=== PATIENT | male | born 1965 | race African-American/Black ===

== ENCOUNTER → 2017-08-24 16:10 | Outpatient (CLI) | payer MEDICAID, OTHER, SELFPAY ==
[2017-08-24 18:42] LABS: Chlamydia Trachomatis by PCR Negative (Negative); Neisserai gonorrhoeae by PCR Negative (Negative); Probe Check PASS; Sample Adequacy Control PASS; Specimen Processing Control PASS
[2017-08-25 01:10] LABS: Rapid Plasmin Reagin (RPR) NONREACTIVE (NONREACTIVE)
[2017-08-25 10:37] LABS: HIV - WCH Non-Reactive (Nonreactive)
== END ==
PROVIDERS: Family Provider Family Medicine; PCP Family Medicine; Visit Provider Family Medicine
DX: Z20.9 Contact with and (suspected) exposure to unspecified communicable disease (principal); Z20.2 Contact with and (suspected) exposure to infections with a predominantly sexual mode of transmission
CPT/HCPCS: 36415; 86592; 86703; 87491; 87591

== ENCOUNTER → 2018-03-06 15:34 | Outpatient (CLI) | payer OTHER, MEDICAID, SELFPAY ==
--- NOTE | 2018-03-06 16:00 | MRI_ITS ---
STUDY: MRI BRAIN WITH AND WITHOUT CONTRAST REASON FOR EXAM: Male, 52 years old. Blurred vision for 3 to 4 months TECHNIQUE: Standardized multiplanar fat and water weighted pulse sequences were obtained. 9 ml of Gadavist contrast material was administered intravenously for the contrast portion of the examination. COMPARISON: None. FINDINGS: Normal size of the ventricles and extra-axial spaces for the patient's age. Normal white matter tracts of the supratentorial brain. Normal bilateral basal ganglia. Normal thalami. There is no extra-axial fluid accumulation. Normal flow voids within the major intracranial circulation suggesting patency by spin echo criteria. Normal venous enhancement. There is no enhancing intra-axial or extra-axial abnormality. Normal sella turcica, pituitary gland, infundibular stalk, optic chiasm and hypothalamus. Normal tectal plate and pineal gland. Normal midbrain, vijay and medulla. Normal cerebellum. Normal basal cisterns. Normal bilateral temporal bones. Normal bilateral internal auditory canals. There appears to be mild orbital strabismus of uncertain etiology or clinical significance. The orbits otherwise are unremarkable. Normal visualized paranasal sinuses. Normal calvarium and skull base. Normal visualized soft tissue structures. Normal visualized upper cervical spine. MRI/Brain W/WO Contrast IMPRESSION: Normal unenhanced and enhanced MRI of the brain. Mild orbital strabismus of uncertain etiology. Otherwise normal orbits Electronically Signed: Mehdi Reyes MD at 18:58 EDT , Service support ,
== END ==
PROVIDERS: Family Provider Family Medicine; PCP Family Medicine; Visit Provider Family Medicine
DX: H53.8 Other visual disturbances (principal); H46.9 Unspecified optic neuritis
CPT/HCPCS: 70553; A9585

== ENCOUNTER → 2019-07-18 16:04 | Outpatient (CLI) | payer OTHER, SELFPAY ==
[2019-07-18 17:22] LABS: Absolute Lymphocyte Count 1.66 X10^3/uL (0.83-4.51); Absolute Neutrophil Count 2.1 X10^3/uL (2.0-7.7); Basophil# 0.04 X10^3/uL; Basophil% 0.9 % (0-1); Eosinophil# 0.18 X10^3/uL; Hematocrit 39.7 % (40-54); Lymphocyte # 1.66 X10^3/ul (4.0); Lymphocyte % 36.5 % (19-41); Mean Corp Hgb Conc 32.7 g/dL (32-36); Mean Corpuscular Hgb 31.9 pg (27.0-32.0); Mean Corpuscular Volume 97.3 fL (80-94); Mean Platelet Vol. 11.9 fl (6.2-12.0); Monocyte% 13.2 % (0-10); NRBC Flagged by Analyzer 0 % (0-5); Neutrophil # 2.07 X10^3/uL (2.7-7.7); Neutrophil % 45.4 % (47-70); Platelet Count 187 K/mm3 (150-450); RBC Distribution Width CV 15.4 % (11.6-14.6); RBC Distribution Width SD 55.5 fl (35.1-43.9); Red Blood Count 4.08 M/mm3 (4.6-6.2); White Blood Count 4.6 K/mm3 (4.4-11.0)
[2019-07-18 18:34] LABS: AST(SGOT) 184 U/L (15-37); Alanine Aminotransfer ALT/SGPT 68 U/L (16-61); Albumin, Serum 3.5 g/dL (3.2-5.0); Alkaline Phosphatase 84 U/L (45-117); Anion Gap 7 (5-15); BUN 5 mg/dL (7-18); BUN/Creat Ratio 6.4 RATIO (10-20); Calcium,Total 8.8 mg/dL (8.5-10.1); Chloride 106 mmol/L (98-107); Creatinine, Serum 0.78 mg/dL (0.70-1.30); EST Glomerular Filtration Rate 110 mL/min (>60); Est Glom Filt Rate - Afr Amer 134 mL/min (>60); Globulin 3.5 g/dL (2.2-4.2); Glucose 78 mg/dL (74-106); Potassium 3.6 mmol/L (3.5-5.1); Sodium Level 140 mmol/L (136-145); Thyroid Stim Hormone (TSH) 1.04 uIU/mL (0.358-3.74)
[2019-07-19 10:27] LABS: HIV - WCH Non-Reactive (Nonreactive); Hepatitis C Antibody Non-Reactive (Nonreactive); Vitamin B12 460 pg/mL (211-911)
[2019-07-25 16:10] LABS: Vitamin B1, Thiamine 118.8 nmol/L (66.5-200.0)
== END ==
PROVIDERS: PCP Family Medicine; Visit Provider Family Medicine
DX: Z00.00 Encounter for general adult medical examination without abnormal findings (principal); E51.9 Thiamine deficiency, unspecified; F10.20 Alcohol dependence, uncomplicated; G62.9 Polyneuropathy, unspecified; R36.9 Urethral discharge, unspecified
CPT/HCPCS: 36415; 80053; 82607; 82746; 84425; 84443; 85025; 86703; 86803

== ENCOUNTER 2021-11-09 06:47 | Day surgery (SDC) | payer MEDICAID, SELFPAY ==
[2021-11-09] VITALS (7 sets, daily range): BP systolic 106–160; BP diastolic 57–98; PULSE 62–99; RESP 15–17; TEMP 36.3–36.4; O2SAT 99–100; BMI 28.5
[2021-11-09] MEDS: Lactated Ringers 1,000 ML 15 ML IV (07:17)
--- NOTE | 2021-11-09 07:47 | HP.PCM_ITS ---
HPI - General HPI Narrative THALIA PINEDA, is a 56 M who presents for screening colonoscopy. The patient has never had a colonoscopy in the past. Patient reports no abdominal pain or blood in the stool. Patient reports no family history of colon cancer. [facility] Medical History (Updated 11/08/21 @ 11:57 by Malathi Werner) Alcohol use History of pain when walking Liver enzyme elevation Marijuana use Restless legs Shortness of breath on exertion Smoker Vitamin B deficiency Wears dentures Home Medications ascorbic acid (vitamin C) [Vitamin C] 125 mg PO DAILY 09/27/21 [History Last Taken Unknown] multivitamin 1 cap PO DAILY 09/27/21 [History Last Taken Unknown] cholecalciferol (vitamin D3) [Vitamin D3] 25 mcg PO DAILY 11/08/21 [History Last Taken Unknown] gabapentin 100 mg PO BID 11/08/21 [History Last Taken Unknown] pregabalin 50 mg PO TID 11/08/21 [History Last Taken Unknown] Allergy/AdvReac Type Severity Reaction Status Date / Time No Known Allergies Allergy Verified 11/09/21 07:06 Surgical History Hx of appendectomy Social History Smoking Status: Current every day smoker tobacco type: cigars Past Medical/Surgical History Planned Operation Planned Operative Procedure/s: COLONOSCOPY Previous Hospitalizations/Surgeries HX Hospitalizations: No Any Problems With Anesthesia: No You/Your Family Experience Fever (Hyperthermia) With Anes: No Cholinesterase deficiency: No Cardiovascular Hx Hypertension: No Respiratory Hx Sleep Apnea: No Hx Respiratory Tract Infection/Cold (presently): No Do You Snore Loudly (louder than talking or can be heard): No Do You Often Feel Tired/ Fatigued/ Sleepy Dring Daytime?: No Has Anyone Observed You Stop Breathing During Sleep?: No Result (for STOP score): Negative Smoking Status: Current every day smoker Neurological Does patient have nerve stimulator: No Reproduction : No Miscellaneous Recent Exposure to Contagious Disease: No Allergies No Known Allergies Allergy (Verified 11/09/21 07:06) Discharge Is Pt Admitted From a Long-Term, or a Detention: No After D/C, Where Do you Plan to Go: Return Home Vital Signs Vital Signs Vital Signs: 11/09/21 07:07 11/09/21 07:08 Temperature 97.4 F L Temperature Source Temporal Pulse Rate 62 Respiratory Rate 15 Respiratory Pattern Normal Blood Pressure 160/85 H Blood Pressure Mean 110 Blood Pressure Source Monitor Blood Pressure Position Semi-Fowlers Blood Pressure Location Right Arm Pulse Ox 100 Oxygen Delivery Method Room Air Weight Weight: 193 lb Body Mass Index (BMI) 28.5 Physical Exam Const alert and oriented x3 Resp normal respiratory effort and normal air movement Cardio regular rate and regular rhythm GI soft to palpation, non-tender and non-distended Assessment & Plan Assessment/Plan (1) Encounter for screening for malignant neoplasm of colon: PLAN: I explained endoscopy in detail to the patient. I explained the risks including but not limited to stroke or heart attack with anesthesia, perforation of the GI tract, bleeding, infection. I explained that any of these could necessitate further emergency surgery. The patient understands and all questions were answered sufficiently. The patient wishes to proceed with procedure. Margarito Vargas MD Pager: [facility] [address] [place] [address] [address] [place] [address] Office: Surgery Risks - Colonoscopy Risks Include but are not Limited To: Risks include but are not limited to: Bleeding, perforation requiring further surgery, inability to complete colonoscopy requiring barium enema.
--- NOTE | 2021-11-09 08:23 | OP.COLON_ITS ---
Patient Name: Amador Alarcon Procedure Date: 11/09/2021 7:53 AM Date of : 1965 Age: 56 Procedure: Colonoscopy Indications: Screening for colorectal malignant neoplasm Providers: Margarito Vargas MD Referring MD: Nilson Sena Medicines: Monitored Anesthesia Care Patient Profile: This is a 56 year old male. Refer to note in patient chart for documentation of history and physical. Last Colonoscopy: none. The patient's first colonoscopy is today. Complications: No immediate complications. Procedure: Pre-Anesthesia Assessment: - Prior to the procedure, a History and Physical was performed, and patient medications and allergies were reviewed. The patient's tolerance of previous anesthesia was also reviewed. The risks and benefits of the procedure and the sedation options and risks were discussed with the patient. All questions were answered, and informed consent was obtained. Prior Anticoagulants: The patient has taken no previous anticoagulant or antiplatelet agents. After reviewing the risks and benefits, the patient was deemed in satisfactory condition to undergo the procedure. After I obtained informed consent, the scope was passed under direct vision. Throughout the procedure, the patient's blood pressure, pulse, and oxygen saturations were monitored continuously. The Colonoscope was introduced through the anus and advanced to the cecum, identified by appendiceal orifice and ileocecal valve. The colonoscopy was performed without difficulty. The patient tolerated the procedure well. The quality of the bowel preparation was good. Scope In: 8:01:48 AM Scope Withdrawal Time 0 hours 6 minutes 22 seconds Scope Out: 8:12:51 AM Total Procedure Duration Time 0 hours 11 minutes 3 seconds Findings: The entire examined colon appeared normal on direct and retroflexion views. Impression: - The entire examined colon is normal on direct and retroflexion views. - No specimens collected. Recommendation: - Discharge patient to home. - Resume previous diet. - Continue present medications. - Repeat colonoscopy in 10 years for screening purposes. Procedure Code(s): --- Professional --- 05417, Colonoscopy, flexible; diagnostic, including collection of specimen(s) by brushing or washing, when performed (separate procedure) Diagnosis Code(s): --- Professional --- Z12.11, Encounter for screening for malignant neoplasm of colon CPT copyright 2017 [employer]. All rights reserved. The codes documented in this report are preliminary and upon remote inpatient coder review may be revised to meet current compliance requirements. Margarito Vargas MD 11/09/2021 8:23:12 AM This report has been signed electronically. Number of Addenda: 0 Note Initiated On: 11/09/2021 7:53 AM
--- NOTE | 2021-11-09 08:24 | OP.CCLET_ITS ---
11/09/2021 Nilson Sena [address] [place] [address] Re : Colonoscopy procedure for Edcristian Alarcon Dear Dr. Sena This procedure was performed on Tuesday, November 09, 2021. My impressions and recommendations are as follows: Impressions : - The entire examined colon is normal on direct and retroflexion views. - No specimens collected. Recommendations : - Discharge patient to home. - Resume previous diet. - Continue present medications. - Repeat colonoscopy in 10 years for screening purposes. My findings are described in the full procedure note, which is enclosed. If I can be of further assistance, please feel free to contact me at Doctor phone number(s): , Work: . Sincerely, Margarito Vargas MD 11/09/2021 8:23:12 AM This report has been signed electronically.
== END 2021-11-09 08:54 | disposition home or self-care (01) ==
LOC: EN 06:49 → AC 06:51
PROVIDERS: PCP Family Medicine; Referring Provider Family Medicine; Visit Provider Surgery
PROC: 0DJD8ZZ Inspection of Lower Intestinal Tract, Via Natural or Artificial Opening Endoscopic (ICD-10-PCS; CPT 45378; principal; 2021-11-09 07:55)
DX: Z12.11 Encounter for screening for malignant neoplasm of colon (principal); F17.290 Nicotine dependence, other tobacco product, uncomplicated
CPT/HCPCS: 45378; J7120; J2405

== ENCOUNTER → 2023-10-13 | Outpatient (CLI) | payer MEDICAID, SELFPAY ==
[2023-10-13 17:48] LABS: Absolute Lymphocyte Count 2.05 X10^3/uL (0.83-4.51); Absolute Neutrophil Count 2.5 X10^3/uL (2.0-7.7); Basophil# 0.04 X10^3/uL; Basophil% 0.7 % (0-1); Eosinophil# 0.21 X10^3/uL; Eosinophils% 3.7 % (0-5); Hematocrit 44.2 % (40-54); Hemoglobin 14.6 g/dL (13.0-16.5); Lymphocyte # 2.05 X10^3/ul (0.83-4.51); Lymphocyte % 36.5 % (19-41); Mean Corpuscular Hgb 31.7 pg (27.0-32.0); Mean Corpuscular Volume 96.1 fL (80-94); Mean Platelet Vol. 12.9 fl (6.2-12.0); Monocyte# 0.79 X10^3/uL; Monocyte% 14.1 % (0-10); NRBC Flagged by Analyzer 0 % (0-5); Neutrophil % 44.6 % (47-70); Platelet Count 179 K/mm3 (150-450); RBC Distribution Width CV 16.4 % (11.6-14.6); RBC Distribution Width SD 57.7 fl (35.1-43.9); White Blood Count 5.6 K/mm3 (4.4-11.0)
[2023-10-13 18:01] LABS: ALB/GLOB Ratio 0.9 RATIO (0.9-2.4); AST(SGOT) 38 U/L (15-37); Alanine Aminotransfer ALT/SGPT 25 U/L (16-61); Albumin, Serum 3.5 g/dL (3.2-5.0); Alkaline Phosphatase 60 U/L (45-117); Anion Gap 9 (5-15); BUN 7 mg/dL (7-18); BUN/Creat Ratio 5.5 RATIO (10-20); Calcium,Total 9.3 mg/dL (8.5-10.1); Chloride 108 mmol/L (98-107); Cholesterol 183 mg/dL (200); Creatinine, Serum 1.28 mg/dL (0.70-1.30); EST Glomerular Filtration Rate 62 mL/min (>60); Est Glom Filt Rate - Afr Amer 75 mL/min (>60); Globulin 3.9 g/dL (2.2-4.2); Glucose 101 mg/dL (74-106); High Density Lipoprotein 66 mg/dL; PSA,Total - Annual Screen 0.84 ng/mL (0.00-4.00); Potassium 3.8 mmol/L (3.5-5.1); Protein, Total 7.4 g/dL (6.4-8.2); Sodium Level 139 mmol/L (136-145); Triglycerides 235 mg/dL; Very Low Density Lipoprotein 47 mg/dL (5-40)
[2023-10-18 17:07] LABS: Vitamin B1, Thiamine 87.5 nmol/L (66.5-200.0)
== END | disposition home or self-care (01) ==
LOC: BFHLAB 14:21
PROVIDERS: PCP Family Medicine; Visit Provider Family Medicine
DX: Z00.00 Encounter for general adult medical examination without abnormal findings (principal); Z12.5 Encounter for screening for malignant neoplasm of prostate; E51.9 Thiamine deficiency, unspecified
CPT/HCPCS: 36415; 80053; 80061; 84153; 84425; 85025; G0103

== ENCOUNTER 2024-11-14 15:15 | Outpatient (RCR) | payer MEDICARE, SELFPAY ==
[2024-10-21 13:18] VITALS: BP 166/88; PULSE 110; RESP 18; TEMP 36.4; BMI 32.5
--- NOTE | 2024-10-21 14:41 | WC ---
PHOTO 10/21/24 RIGHT ANKLE
--- NOTE | 2024-10-22 06:29 | HP.PCM_ITS ---
History of Present Illness Date of Service: 10/21/24 Chief Complaint: Right lateral ankle wound after foot and ankle surgery History of Wound: Amador Alarcon is a delightful 59-year-old male with past medical history of right ankle fracture in June 2024 (4 months ago) who presents with a nonhealing wound on the lateral aspect of the incision from the foot and ankle surgeon. Patient reports that he had a mechanical fall in June which was treated with open reduction internal fixation at [facility] by foot and ankle surgeon Dr. Dell Mccann, who referred the patient to the wound care center for the nonhealing wound. Patient is reportedly full weightbearing, but is using a walker for assistance. He continues to smoke (discussed smoking cessation at our visit today). He denies any fevers or chills. Patient does not have a personal or family history of bleeding or clotting problems. He reports that he is otherwise healthy. [facility] Medical History Shortness of breath on exertion History of pain when walking Wears dentures Alcohol use Marijuana use Vitamin B deficiency Liver enzyme elevation Restless legs Smoker Home Medications ?Medication ?Instructions ?Recorded ?Last Taken ?Type ascorbic acid (vitamin C) 125 mg 125 mg PO DAILY 09/27 Unknown History chewable tablet (Vitamin C) multivitamin 1 cap PO DAILY 09/27/21 Unkn own History cholecalciferol (vitamin D3) 25 25 mcg PO DAILY Unknown History mcg (1,000 unit) chewable tablet (Vitamin D3) gabapentin 100 mg capsule 100 mg PO BID 11/08/21 Unkno wn History pregabalin 50 mg capsule 50 mg PO TID 11/08/21 Unknow n History tadalafil 20 mg tablet mg 10/21/24 Unknown History Allergy/AdvReac Type Severity Reaction Status Date / Time No Known Allergies Allergy Verified 10/21/24 13:34 Surgical History Hx of appendectomy Social History Smoking Status: Current every day smoker tobacco type: cigars Vital Signs Vital Signs Vital Signs: 10/21/24 13:18 Temperature 97.5 F L Temperature Source Temporal Pulse Rate 110 H Respiratory Rate 18 Blood Pressure 166/88 H Blood Pressure Mean 114 Blood Pressure Source Monitor Weight Weight: 240 lb 1.75 oz Body Mass Index (BMI) 32.5 Physical Exam Narrative Right lower extremity: There is a 6 x 1 cm wound on the right lateral ankle that is 0.8 cm deep with an exposed screw at the base of the wound. There is no surrounding induration or any fluid collections. No draining sinuses. Vascular: 2+ dorsalis pedis and posterior tibial pulses Sensory: He has full sensation to light touch on the foot and ankle. Motor: 5+ plantarflexion and dorsiflexion. Debridement Note Debridement Note Wound debrided: Right lateral ankle wound Laterality: Right Wound Grade/Stage: 4 Type of Debridement: Excisional debridement Anesthesia Used: 4% Lidocaine Solution Depth: in the subcutaneous layer Percentage of wound debrided: 100 Instrument Used: 5mm curette and 7mm curette Tissue Removed: Fibrinous exudate and necrotic fat over the screw Severity: Fat Layer Exposed Amount of bleeding with debridement: Mild Bleeding Controlled with: Compression and gauze Patient tolerated procedure: Patient tolerated procedure well Post-Debridement Measurements and Additional Note: Post-Debridement Measurements/Treatment - Nurse 1 - General Ulcer Assessment Start: 10/21/24 13:18 Freq: Status: Active Protocol: GOGO.CrunchedEXWilfrido Activity Type Activity Date Activity User E-sign Co-sign Detail Recorded Client Recorded Date Recorded By Document 10/21/24 13:18 DL [id number] 10/21/24 13:30 DL 10/21/24 13:18 - Today's Visit Information Type of service Initial Visit Patient Identification Verified (Name & Yes ) Patient Requires Transmission-Based No Precautions Height and Weight Height 6 ft Weight 240 lb 1.75 oz Weight in Pounds 240.1 lbs Body Mass Index (BMI) 32.5 BMI Classification Obese Vital Signs Temperature (97.8 F-99.1 F) 97.5 F L Temperature Source Temporal Pulse Rate (60-100) 110 H Pulse Location Monitor Respiratory Rate (12-18) 18 Respiratory rate source Observation Blood Pressure (90/60-120/80) 166/88 H Blood Pressure Mean 114 Source Monitor Pain Scale: 0-10 Numeric Is Patient Pain Free? Yes Lower Extremity Assessment/ Foot Assessment/ Toe Nail Assessment Left -Posterior Tibial Palpable Yes -Posterior Tibial Doppler Multiphasic -Dorsalis Pedis Palpable Yes -Dorsalis Pedis Doppler Multiphasic -Extremity Color Hemosiderin -Hair Growth on Legs No -Hair Growth on Toes No -Temperature of Extremity Warm -Capillary Refill Less than 3 Seconds -Dependent Rubor No -Blanched when Elevated No -Lipodermatosclerosis No -Other Deformity No -Prior Foot Ulcer No -Charcot Joint No -Prior Amputation No -Thick Yes -Discolored Yes -Deformed Yes -Improper Length & Hygeine Yes Right -Posterior Tibial Palpable Yes -Posterior Tibial Doppler Multiphasic -Dorsalis Pedis Palpable Yes -Dorsalis Pedis Doppler Multiphasic -Extremity Color Hemosiderin -Hair Growth on Legs No -Hair Growth on Toes No -Temperature of Extremity Warm -Capillary Refill Less than 3 Seconds -Dependent Rubor No -Blanched when Elevated No -Lipodermatosclerosis No -Other Deformity No -Prior Foot Ulcer No -Charcot Joint No -Prior Amputation No -Thick Yes -Discolored Yes -Deformed Yes -Improper Length & Hygeine Yes Communication Assessment Preferred language Indonesian Able to Read Yes Able to Write Yes Communication Tools None Visual Assistive Devices None Teaching Assessment Preferences Verbal,Written, Demonstration Functional Assessment Recent Decline in Ability to Perform Ambulation, Transferring Teaching: Wound Center *Welcome to the Wound Center -Person Taught Patient WC - Nurse 1 - General Ulcer Measurement Start: 10/21/24 13:18 Freq: Status: Active Protocol: Activity Type Activity Date Activity User E-sign Co-sign Detail Recorded Client Recorded Date Recorded By Document 10/21/24 13:18 DL [id number] 10/21/24 13:30 DL 10/21/24 13:18 Wound Center Nurse 1 #1 RLat Ankle -Current Size (cm) - Length 6 -Current Size (cm) - Width 0.5 -Current Size (cm) - Depth 0.6 -Total Square Cm 3.0 -Photo Taken Yes -Classification - Thickness Full Thickness without Exposed Support Structure -Exudate Amt Medium -Exudate Type Serosanguineous -Wound Margin Distinct, Outline Attached -Granulation Amt None Present (0 %) -Necrosis Amt Large (67-100%) -Necrotic Tissue Type Adherent Slough -Structure Exposed N/A -Texture (Nubia-wound Skin Appearance) Localized Edema ,Scarring -Moisture (Nubia-wound Skin Appearance) No Abnormality -Color (Nubia-wound Skin Appearance) Hemosiderin Staining -Temperature (Nubia-wound Skin No Abnormality Appearance) (Pt Warm) -Tenderness on Palpation (Nubia-wound No Skin Appearance) -Ulcer Cleansing Soap and Water -Foul Odor after Cleansing No -Anesthetic Used 5% Lidocaine Gel Right Calf (cm) 38 Right Ankle (cm) 25.5 WC - Nurse 2 - General Ulcer CM Notes Start: 10/21/24 13:18 Freq: Status: Active Protocol: Activity Type Activity Date Activity User E-sign Co-sign Detail Recorded Client Recorded Date Recorded By Document 10/21/24 13:52 [id number] [id number] 10/21/24 14:06 10/21/24 13:52 Wound Center Nurse 2 #1 RLat Ankle -Time 13:55 -Correct Patient Yes -Correct Side, Site, Position Yes -Correct Procedure Yes -Procedure Performed Yes -Type of Procedure Debridement -Clinical Debridement Subcutaneous -Tissue Removed Subcutaneous -Post Debridement (cm) - Length 6.2 -Post Debridement (cm) - Width 1.0 -Post Debridement (cm) - Depth 0.8 -Total Square (Post) (cm) 6.20 -Area of Debridement (cm) - Length 6.2 -Area of Debridement (cm) - Width 1.0 -Total Square (Area) (cm) 6.20 -Tunneling No -Undermining/Tunneling No -Circular Undermining No -Wound/Ulcer Outcome Not Healed -Ulcer Cleansing Rinsed/ Irrigated with Saline -Foul Odor after Cleansing No -Bioengineered Tissue No -Bleeding Controlled with Pressure -Treatment Response Procedure Tolerated Well -Offloading No -Debridement - Subq, 1st 20sq cm Yes Pain Scale: 0-10 Numeric Is Patient Pain Free? Yes - Nurse 3 - General Ulcer D/C NN Start: 10/21/24 13:18 Freq: Status: Active Protocol: Activity Type Activity Date Activity User E-sign Co-sign Detail Recorded Client Recorded Date Recorded By Document 10/21/24 14:20 KW [id number] 10/21/24 14:22 10/21/24 14:20 Wound Care Center Nurse 3 #1 RLat Ankle -Ulcer Cleansing Rinsed/ Irrigated with Saline -Other Dressing dakins -Primary Dressing Covered/Secured with Dry Gauze,Dry Gauze & Roll Gauze,Secured with Tape RLE -Tubular Bandage Single Layer -Size of Tubigrip Used Size F -Size F ($) 1 Pain Scale: 0-10 Numeric Is Patient Pain Free? Yes Charges/Coding Visit Charges Office Visits / Consults: [id number] OV L4 New 45min (Significant time obtaining history and direct patient care (45 minutes) ) Procedures Integumentary [id number]: [id number] Lisa subq tissue 20 sq cm/< Assessment/Plan Assessment/Plan (1) Delayed surgical wound healing: CODE(S): T81.89XA - Other complications of procedures, not elsewhere classified, initial encounter PLAN: Discussed smoking cessation. Ordered ABIs to check for vascular insufficiency. Plan for Dakin's wet-to-dry dressings twice daily for now and ordering a home wound VAC. I will try to get the imaging from [facility] (recently got x-rays), otherwise we will repeat x-rays. Ordering nutrition labs as well including A1c. PLAN: Plan I am concerned that the wound has a colonized screw at the base that will inhibit granulation and closure of the wound. I believe that the screw likely needs to be removed, and as long as the patient is optimized medically (we will check for metabolic problems and vascular problems), once the foreign body is removed from the wound bed then Mr. Alarcon should be able to granulate the wound bed with the wound VAC for eventual healing. I will talk to Dr. Mccann. Plan for follow-up in 1 week at the wound care center
--- NOTE | 2024-10-29 13:30 | WC ---
Called ATB Doxy 100mg PO BID x7 days no refills per Dr. Laguna to [facility] in [facility] as preferred pharm for pt.
--- NOTE | 2024-11-04 08:19 | PN.PCM_ITS ---
History of Present Illness Date of Service: 11/04/24 Chief Complaint: Right lateral ankle wound after foot and ankle surgery History of Wound: Amador Alarcon is a delightful 59-year-old male with past medical history of right ankle fracture in June 2024 (4 months ago) who presents with a nonhealing wound on the lateral aspect of the incision from the foot and ankle surgeon. Patient reports that he had a mechanical fall in June which was treated with open reduction internal fixation at [facility] by foot and ankle surgeon Dr. Dell Mccann, who referred the patient to the wound care center for the nonhealing wound. Patient is reportedly full weightbearing, but is using a walker for assistance. He continues to smoke (discussed smoking cessation at our visit today). He denies any fevers or chills. Patient does not have a personal or family history of bleeding or clotting problems. He reports that he is otherwise healthy. Subjective Subjective CURRENT ENCOUNTER, 04 Nov 2024: Doing well overall today 1 week status post removal of fibular hardware with Dr. Mccann (removed 28 Oct 2024). Dr. Mccann also placed a skin substitute over the exposed area of fibula at the base of the wound. Patient has been taking doxycycline 100 mg p.o. twice daily since the week before last for positive cultures of the surface of the hardware taken in clinic. No cultures were taken at the time of hardware explantation (I spoke with Dr. Mccann after the surgery). Mr. Alarcon is currently doing Dakin's wet-to-dry twice daily for wound care over the wound over the skin substitute. He has an infectious disease referral to see Dr. Nebwy. Objective Data Objective Data Vital Signs: Vital Signs Temp Pulse Resp BP 97.5 F L 110 H 18 166/88 H 10/21/24 13:18 10/21/24 13:18 10/21/24 13:18 10/21/24 13:18 Weight: 240 lb 1.75 oz Body Mass Index (BMI) 32.5 Lab / Micro Data Micro: Microbiology 10/21/24 14:02 Ulcer, Decubitus - Ankle Gram Stain - Final 10/21/24 14:02 Ulcer, Decubitus - Ankle Wound Culture - Final Enterobacter cloacae complex Staphylococcus aureus 10/21/24 14:02 Ulcer, Decubitus - Ankle Anaerobic Culture - Final Anaerobic cocci Schaalia canis Charges/Coding Procedures Integumentary 111xxx-113xx: 86265 Lisa bone 20 sq cm/< Physical Exam Narrative Right lower extremity: There is a 9 x 1 cm cm wound on the right lateral ankle that is 1 cm with exposed dermal substitute over bone at the base of the wound. There is no surrounding induration or any fluid collections. No draining sinuses. Vascular: 2+ dorsalis pedis and posterior tibial pulses Sensory: He has full sensation to light touch on the foot and ankle. Motor: 5+ plantarflexion and dorsiflexion. Debridement Note Debridement Note Wound debrided: Right lateral leg and ankle wound Laterality: Right Wound Grade/Stage: Stage IV, exposed fibula at the base Type of Debridement: Excisional debridement Anesthesia Used: 4% Lidocaine Solution and - (10 cc of 1% lidocaine with 1- 200,000 epinephrine) Depth: to bone Percentage of wound debrided: 100 Instrument Used: 7mm curette, Forceps and - (15 blade scalpel and scissors for sharp excision) Tissue Removed: Sutures, necrotic fat, dermal substitute, bone fragments at the base Amount of bleeding with debridement: Moderate Bleeding Controlled with: Compression and gauze and - (The epinephrine from the local anesthesia as noted above) Patient tolerated procedure: Patient tolerated procedure well Debridement Free Text: The area was prepped with alcohol and sterile surgical instruments were used. Sutures were removed so as to enable removal of the dermal substitute (cadaver allograft) placed over the bone. The dermal substitute was remove from the surface of the wound/bone with the use of forceps and a scissors (it had been sutured into place). There was exposed bone at the base of the wound with bony fragments from removal of the plate which were washed out and debrided with a curette (removal of bone fragments from the base of the wound). The surrounding tissue had some tissue necrosis including necrotic fibrinous exudate and necrotic fat and fascia which was excised sharply with scissors and a 15 blade scalpel. The wound was irrigated with copious amounts normal saline. At this point the wound was ready for wound VAC placement, and the wound VAC was applied. Operative Diagnosis: Severe wound with bone exposed at the base after hardware removal Post-Debridement Measurements and Additional Note: Post-Debridement Measurements/Treatment WC - Nurse 1 - General Ulcer Assessment Start: 10/21/24 13:18 Freq: Status: Active Protocol: WC.LOWEXT Activity Type Activity Date Activity User E-sign Co-sign Detail Recorded Client Recorded Date Recorded By Document 10/21/24 13:18 DL [id number] 10/21/24 13:30 DL 10/21/24 13:18 WC - Today's Visit Information Type of service Initial Visit Patient Identification Verified (Name & Yes ) Patient Requires Transmission-Based No Precautions Height and Weight Height 6 ft Weight 240 lb 1.75 oz Weight in Pounds 240.1 lbs Body Mass Index (BMI) 32.5 BMI Classification Obese Vital Signs Temperature (97.8 F-99.1 F) 97.5 F L Temperature Source Temporal Pulse Rate (60-100) 110 H Pulse Location Monitor Respiratory Rate (12-18) 18 Respiratory rate source Observation Blood Pressure (90/60-120/80) 166/88 H Blood Pressure Mean (mm Hg) 114 Source Monitor Pain Scale: 0-10 Numeric Is Patient Pain Free? Yes Lower Extremity Assessment/ Foot Assessment/ Toe Nail Assessment Left -Posterior Tibial Palpable Yes -Posterior Tibial Doppler Multiphasic -Dorsalis Pedis Palpable Yes -Dorsalis Pedis Doppler Multiphasic -Extremity Color Hemosiderin -Hair Growth on Legs No -Hair Growth on Toes No -Temperature of Extremity Warm -Capillary Refill Less than 3 Seconds -Dependent Rubor No -Blanched when Elevated No -Lipodermatosclerosis No -Other Deformity No -Prior Foot Ulcer No -Charcot Joint No -Prior Amputation No -Thick Yes -Discolored Yes -Deformed Yes -Improper Length & Hygeine Yes Right -Posterior Tibial Palpable Yes -Posterior Tibial Doppler Multiphasic -Dorsalis Pedis Palpable Yes -Dorsalis Pedis Doppler Multiphasic -Extremity Color Hemosiderin -Hair Growth on Legs No -Hair Growth on Toes No -Temperature of Extremity Warm -Capillary Refill Less than 3 Seconds -Dependent Rubor No -Blanched when Elevated No -Lipodermatosclerosis No -Other Deformity No -Prior Foot Ulcer No -Charcot Joint No -Prior Amputation No -Thick Yes -Discolored Yes -Deformed Yes -Improper Length & Hygeine Yes Communication Assessment Preferred language Azeri Able to Read Yes Able to Write Yes Communication Tools None Visual Assistive Devices None Teaching Assessment Preferences Verbal,Written, Demonstration Functional Assessment Recent Decline in Ability to Perform Ambulation, Transferring Teaching: Wound Center *Welcome to the Wound Center -Person Taught Patient WC - Nurse 1 - General Ulcer Measurement Start: 10/21/24 13:18 Freq: Status: Active Protocol: Activity Type Activity Date Activity User E-sign Co-sign Detail Recorded Client Recorded Date Recorded By Document 10/21/24 13:18 NICOLÁS [id number] 10/21/24 13:30 DL 10/21/24 13:18 Wound Center Nurse 1 #1 RLat Ankle -Current Size (cm) - Length 6 -Current Size (cm) - Width 0.5 -Current Size (cm) - Depth 0.6 -Total Square Cm 3.0 -Photo Taken Yes -Classification - Thickness Full Thickness without Exposed Support Structure -Exudate Amt Medium -Exudate Type Serosanguineous -Wound Margin Distinct, Outline Attached -Granulation Amt None Present (0 %) -Necrosis Amt Large (67-100%) -Necrotic Tissue Type Adherent Slough -Structure Exposed N/A -Texture (Nubia-wound Skin Appearance) Localized Edema ,Scarring -Moisture (Nubia-wound Skin Appearance) No Abnormality -Color (Nubia-wound Skin Appearance) Hemosiderin Staining -Temperature (Nubia-wound Skin No Abnormality Appearance) (Pt Warm) -Tenderness on Palpation (Nbuia-wound No Skin Appearance) -Ulcer Cleansing Soap and Water -Foul Odor after Cleansing No -Anesthetic Used 5% Lidocaine Gel Right Calf (cm) 38 Right Ankle (cm) 25.5 - Nurse 2 - General Ulcer CM Notes Start: 10/21/24 13:18 Freq: Status: Active Protocol: Activity Type Activity Date Activity User E-sign Co-sign Detail Recorded Client Recorded Date Recorded By Document 10/21/24 13:52 RENE [id number] 10/21/24 14:06 RENE 10/21/24 13:52 Wound Center Nurse 2 #1 RLat Ankle -Time 13:55 -Correct Patient Yes -Correct Side, Site, Position Yes -Correct Procedure Yes -Procedure Performed Yes -Type of Procedure Debridement -Clinical Debridement Subcutaneous -Tissue Removed Subcutaneous -Post Debridement (cm) - Length 6.2 -Post Debridement (cm) - Width 1.0 -Post Debridement (cm) - Depth 0.8 -Total Square (Post) (cm) 6.20 -Area of Debridement (cm) - Length 6.2 -Area of Debridement (cm) - Width 1.0 -Total Square (Area) (cm) 6.20 -Tunneling No -Undermining/Tunneling No -Circular Undermining No -Wound/Ulcer Outcome Not Healed -Ulcer Cleansing Rinsed/ Irrigated with Saline -Foul Odor after Cleansing No -Bioengineered Tissue No -Bleeding Controlled with Pressure -Treatment Response Procedure Tolerated Well -Offloading No -Debridement - Subq, 1st 20sq cm Yes Pain Scale: 0-10 Numeric Is Patient Pain Free? Yes WC - Nurse 3 - General Ulcer D/C NN Start: 10/21/24 13:18 Freq: Status: Active Protocol: Activity Type Activity Date Activity User E-sign Co-sign Detail Recorded Client Recorded Date Recorded By Document 10/21/24 14:20 KW [id number] 10/21/24 14:22 KW 10/21/24 14:20 Wound Care Center Nurse 3 #1 RLat Ankle -Ulcer Cleansing Rinsed/ Irrigated with Saline -Other Dressing dakins -Primary Dressing Covered/Secured with Dry Gauze,Dry Gauze & Roll Gauze,Secured with Tape RLE -Tubular Bandage Single Layer -Size of Tubigrip Used Size F -Size F ($) 1 Pain Scale: 0-10 Numeric Is Patient Pain Free? Yes Assessment/Plan Assessment/Plan (1) Delayed surgical wound healing: CODE(S): T81.89XA - Other complications of procedures, not elsewhere classified, initial encounter PLAN: Discussed smoking cessation. Ordered ABIs to check for vascular insufficiency (scheduled for later this month) Also ordered labs and discussed importance of obtaining the labs (nutrition labs including CMP, CBC, prealbumin and A1c). PLAN: Plan 1 week s/p removal of hardware with Dr. Mccann with placement of dermal substitute. Since we have wound VAC today dermal substitute was removed (see debridement note above) and the wound VAC was applied. Continue 3 times per week VAC changes and granulation should form and the concave wound base relatively quickly. Plan for follow-up in 1 week at the wound care center. Patient happy with the plan.
[2024-11-04 09:00] VITALS: BP 171/92; PULSE 92; RESP 16; TEMP 37; BMI 32.5
--- NOTE | 2024-11-05 12:55 | WC ---
R LAT ANKLE POST OP 11/04/24
--- NOTE | 2024-11-14 15:18 | PCM.WC.PN ---
History of Present Illness Date of Service: 11/14/24 Chief Complaint: Right lateral ankle wound after foot and ankle surgery History of Wound: Amador Alarcon is a delightful 59-year-old male with past medical history of right ankle fracture in June 2024 (4 months ago) who presents with a nonhealing wound on the lateral aspect of the incision from the foot and ankle surgeon. Patient reports that he had a mechanical fall in June which was treated with open reduction internal fixation at [facility] by foot and ankle surgeon Dr. Dell Mccann, who referred the patient to the wound care center for the nonhealing wound. Patient is reportedly full weightbearing, but is using a walker for assistance. He continues to smoke (discussed smoking cessation at our visit today). He denies any fevers or chills. Patient does not have a personal or family history of bleeding or clotting problems. He reports that he is otherwise healthy. Subjective Subjective 04 Nov 2024: Doing well overall today 1 week status post removal of fibular hardware with Dr. Mccann (removed 28 Oct 2024). Dr. Mccann also placed a skin substitute over the exposed area of fibula at the base of the wound. Patient has been taking doxycycline 100 mg p.o. twice daily since the week before last for positive cultures of the surface of the hardware taken in clinic. No cultures were taken at the time of hardware explantation (I spoke with Dr. Mccann after the surgery). Mr. Alarcon is currently doing Dakin's wet-to-dry twice daily for wound care over the wound over the skin substitute. He has an infectious disease referral to see Dr. Newby. CURRENT ENCOUNTER, 14 Nov 2024: Feeling well overall. Tolerating dressing changes with wound VAC. Finish course of antibiotics. No fevers chills or drainage. Objective Data Objective Data Vital Signs: Vital Signs Temp Pulse Resp BP 98.6 F 92 16 171/92 H 11/04/24 09:00 11/04/24 09:00 11/04/24 09:00 11/04/24 09:00 Weight: 240 lb 1.75 oz Body Mass Index (BMI) 32.5 Lab / Micro Data Micro: Microbiology 10/21/24 14:02 Ulcer, Decubitus - Ankle Gram Stain - Final 10/21/24 14:02 Ulcer, Decubitus - Ankle Wound Culture - Final Enterobacter cloacae complex Staphylococcus aureus 10/21/24 14:02 Ulcer, Decubitus - Ankle Anaerobic Culture - Final Anaerobic cocci Elisabeth hanson Charges/Coding Procedures Integumentary 111xxx-113xx: [id number] Lisa musc/fascia 20 sq cm/< Physical Exam Narrative Right lower extremity: There is a 9 x 2 cm wound on the right lateral ankle that is 1 cm deep with exposed fascia at the base of the wound. No exposed bone today. There is no surrounding induration or any fluid collections. No draining sinuses. Vascular: 2+ dorsalis pedis and posterior tibial pulses Sensory: He has full sensation to light touch on the foot and ankle. Motor: 5+ plantarflexion and dorsiflexion. Debridement Note Debridement Note Wound debrided: Right lateral ankle wound Laterality: Right Wound Grade/Stage: Stage III Type of Debridement: Excisional debridement Anesthesia Used: 4% Lidocaine Solution and - (5 cc of 1% lidocaine with 1-200,000 epinephrine) Depth: to muscle Percentage of wound debrided: 100 Instrument Used: 7mm curette Tissue Removed: Necrotic fibrinous exudate and fascial debris, muscle/fascia level Severity: Necrosis of Muscle Amount of bleeding with debridement: Moderate Bleeding Controlled with: Compression and gauze Patient tolerated procedure: Patient tolerated procedure well Post-Debridement Measurements and Additional Note: Post-Debridement Measurements/Treatment WC - Nurse 1 - General Ulcer Assessment Start: 10/21/24 13:18 Freq: Status: Active Protocol: WC.LOWEXT Activity Type Activity Date Activity User E-sign Co-sign Detail Recorded Client Recorded Date Recorded By Document 10/21/24 13:18 DL [id number] 10/21/24 13:30 DL Document 11/04/24 09:00 [id number] 11/04/24 09:07 10/21/24 11/04/24 13:18 09:00 - Today's Visit Information Type of service Initial Visit Follow-up Visit (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/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 ) Arrival Mode Ambulatory, Walker Patient Identification Verified (Name & Yes Yes ) Patient Requires Transmission-Based No No Precautions Height and Weight Height 6 ft Weight 240 lb 1.75 oz Weight in Pounds 240.1 lbs Body Mass Index (BMI) 32.5 32.5 BMI Classification Obese Obese Vital Signs Temperature (97.8 F-99.1 F) 97.5 F L 98.6 F Temperature Source Temporal Temporal Pulse Rate (60-100) 110 H 92 Pulse Location Monitor Monitor Respiratory Rate (12-18) 18 16 Respiratory rate source Observation Observation Blood Pressure (90/60-120/80) 166/88 H 171/92 H Blood Pressure Mean (mm Hg) 114 118 Source Monitor Monitor Position Semi-Fowlers Blood Pressure Location Right Forearm History Since Last Visit- (Skip if this is Patient's initial visit) Have you changed medications since your No last visit? Any new allergies or adverse reactions No Had a fall/change in ADL's that may No increase risk of falls Signs or symptoms of abuse and/or No neglect since last visit Have you been in the hospital since your No last visit? Has dressing in place as prescribed Yes Has compression in place as prescribed Yes Has offloadiing in place as prescribed Yes Experienced any changes in pain level or No management Left Footwear Regular Shoe Right Footwear Surgical Shoe with pressure relief insole Pain Scale: 0-10 Numeric Is Patient Pain Free? Yes Yes Lower Extremity Assessment/ Foot Assessment/ Toe Nail Assessment Left -Posterior Tibial Palpable Yes -Posterior Tibial Doppler Multiphasic -Dorsalis Pedis Palpable Yes -Dorsalis Pedis Doppler Multiphasic -Extremity Color Hemosiderin -Hair Growth on Legs No -Hair Growth on Toes No -Temperature of Extremity Warm -Capillary Refill Less than 3 Seconds -Dependent Rubor No -Blanched when Elevated No -Lipodermatosclerosis No -Other Deformity No -Prior Foot Ulcer No -Charcot Joint No -Prior Amputation No -Thick Yes -Discolored Yes -Deformed Yes -Improper Length & Hygeine Yes Right -Posterior Tibial Palpable Yes -Posterior Tibial Doppler Multiphasic -Dorsalis Pedis Palpable Yes -Dorsalis Pedis Doppler Multiphasic -Extremity Color Hemosiderin -Hair Growth on Legs No -Hair Growth on Toes No -Temperature of Extremity Warm -Capillary Refill Less than 3 Seconds -Dependent Rubor No -Blanched when Elevated No -Lipodermatosclerosis No -Other Deformity No -Prior Foot Ulcer No -Charcot Joint No -Prior Amputation No -Thick Yes -Discolored Yes -Deformed Yes -Improper Length & Hygeine Yes Communication Assessment Preferred language Spanish Able to Read Yes Able to Write Yes Communication Tools None Visual Assistive Devices None Teaching Assessment Preferences Verbal,Written, Demonstration Functional Assessment Recent Decline in Ability to Perform Ambulation, Transferring Teaching: Wound Center *Welcome to the Wound Center -Person Taught Patient WC - Nurse 1 - General Ulcer Measurement Start: 10/21/24 13:18 Freq: Status: Active Protocol: Activity Type Activity Date Activity User E-sign Co-sign Detail Recorded Client Recorded Date Recorded By Document 10/21/24 13:18 DL [id number] 10/21/24 13:30 DL Document 11/04/24 09:00 JF [id number] 11/04/24 09:07 JF 10/21/24 11/04/24 13:18 09:00 Wound Center Nurse 1 #1 RLat Ankle -Combined with other wound No -Current Size (cm) - Length 6 9.4 -Current Size (cm) - Width 0.5 1.2 -Current Size (cm) - Depth 0.6 1 -Total Square Cm 3.0 11.28 -Photo Taken Yes Yes -Epithelialization Small 1-33% -Tunneling No -Undermining/Tunneling No -Circular Undermining No -Classification - Thickness Full Thickness without Exposed Support Structure -Exudate Amt Medium Medium -Exudate Type Serosanguineous Serosanguineous -Wound Margin Distinct, Flat & Intact Outline Attached -Granulation Amt None Present (0 Medium (34-66%) %) -Granulation Quality Red -Slough/Fibrin Yes -Necrosis Amt Large (67-100%) Medium (34-66%) -Necrotic Tissue Type Adherent Slough Adherent Slough -Structure Exposed N/A N/A -Texture (Nubia-wound Skin Appearance) Localized Edema Assessed, ,Scarring Localized Edema -Moisture (Nubia-wound Skin Appearance) No Abnormality Assessed,Dry/ Scaly -Color (Nubia-wound Skin Appearance) Hemosiderin Assessed Staining -Temperature (Nubia-wound Skin No Abnormality No Abnormality Appearance) (Pt Warm) (Pt Warm) -Tenderness on Palpation (Nubia-wound No No Skin Appearance) -Ulcer Cleansing Soap and Water Soap and Water -Foul Odor after Cleansing No No -Anesthetic Used 5% Lidocaine 4% Lidocaine Gel Solution Lower Limb Edema Present NA Right Calf (cm) 38 Right Ankle (cm) 25.5 WC - Nurse 2 - General Ulcer CM Notes Start: 10/21/24 13:18 Freq: Status: Active Protocol: Activity Type Activity Date Activity User E-sign Co-sign Detail Recorded Client Recorded Date Recorded By Document 10/21/24 13:52 JF [id number] 10/21/24 14:06 JF Document 11/04/24 09:48 BMF [id number] 11/04/24 09:59 BMF 10/21/24 11/04/24 13:52 09:48 Wound Center Nurse 2 #1 RLat Ankle -Time 13:55 09:52 -Correct Patient Yes Yes -Correct Side, Site, Position Yes Yes -Correct Procedure Yes Yes -Procedure Performed Yes Yes -Type of Procedure Debridement Debridement -Clinical Debridement Subcutaneous Bone -Tissue Removed Subcutaneous -Post Debridement (cm) - Length 6.2 9 -Post Debridement (cm) - Width 1.0 1 -Post Debridement (cm) - Depth 0.8 1 -Total Square (Post) (cm) 6.20 9 -Area of Debridement (cm) - Length 6.2 9 -Area of Debridement (cm) - Width 1.0 1 -Total Square (Area) (cm) 6.20 9 -Tunneling No No -Undermining/Tunneling No No -Circular Undermining No No -Wound/Ulcer Outcome Not Healed Not Healed -Ulcer Cleansing Rinsed/ Rinsed/ Irrigated with Irrigated with Saline Saline -Foul Odor after Cleansing No No -Bioengineered Tissue No No -Injectable Lidocaine w/ Epi (%) 1 -Injectable Lidocaine w/ Epi (mls) 10 -Bleeding Controlled with Pressure Pressure -Treatment Response Procedure Procedure Tolerated Well Tolerated Well -Offloading No -Debridement - Subq, 1st 20sq cm Yes -Debridement - Bone, 1st 20sq cm Yes Pain Scale: 0-10 Numeric Is Patient Pain Free? Yes Yes - Nurse 3 - General Ulcer D/C NN Start: 10/21/24 13:18 Freq: Status: Active Protocol: Activity Type Activity Date Activity User E-sign Co-sign Detail Recorded Client Recorded Date Recorded By Document 10/21/24 14:20 KW [id number] 10/21/24 14:22 KW Document 11/04/24 10:09 GM [id number] 11/04/24 10:10 GM Edit Result 11/04/24 10:09 GM (1) [id number] 11/13/24 08:48 BM (1) #1 RLat Ankle - NPWT Application Charge NPWT </= 50 sq cm => NPWT & Debridement ($) => (nc) 05/05/25 05/19/25 14:20 10:09 Wound Care Center Nurse 3 #1 RLat Ankle -Ulcer Cleansing Rinsed/ dakins Irrigated with Saline -Foul Odor after Cleansing Yes -Negative Pressure Wound Therapy Start -Pieces of White Foam Inserted 1 -NPWT Application Charge NPWT & Debridement (nc ) -Setting (mmHg) 125 -Negative Pressure is Continuous -Primary Dressing Applied Hysept -Other Dressing dakins -Primary Dressing Covered/Secured with Dry Gauze,Dry Gauze & Roll Gauze,Secured with Tape -Hysept 1 RLE -Lotion applied to leg before No compression wrap -Tubular Bandage Single Layer Single Layer -Size of Tubigrip Used Size F Size F -Size F ($) 1 1 Pain Scale: 0-10 Numeric Is Patient Pain Free? Yes Yes WC - Visit Discharge Discharge Condition Stable Ambulatory Status Ambulatory Transportation Private Auto Clinical Summary of Care Provided Yes Assessment/Plan Assessment/Plan (1) Delayed surgical wound healing: CODE(S): T81.89XA - Other complications of procedures, not elsewhere classified, initial encounter PLAN: Discussed smoking cessation. Ordered ABIs to check for vascular insufficiency (scheduled for 18 November 2024) Also ordered labs and discussed importance of obtaining the labs (nutrition labs including CMP, CBC, prealbumin and A1c). PLAN: Plan 2.5 weeks s/p removal of hardware with Dr. Mccann with placement of dermal substitute. Continue wound VAC as wound is granulating Continue 3 times per week VAC changes Plan for follow-up in 1 week at the wound care center. Patient happy with the plan. The following is a photograph of the wound after debridement today No exposed bone and healthy granulation tissue now developing at the base of the wound
[2024-11-14 15:27] VITALS: BP 147/79; PULSE 101; RESP 18; TEMP 36.1; BMI 32.5
--- NOTE | 2024-11-15 12:54 | WC ---
PHOTO 11/14/24 RIGHT LATERAL ANKLE
== END 2024-11-16 23:59 | disposition home or self-care (01) ==
LOC: WC 15:15
PROVIDERS: PCP Family Medicine; Referring Provider Podiatrist Foot & Ankle Surgery; Visit Provider Surgery Plastic and Reconstructive Surgery
DX: T81.89XA Other complications of procedures, not elsewhere classified, initial encounter (principal); F17.290 Nicotine dependence, other tobacco product, uncomplicated
CPT/HCPCS: 11042; 11043; 11044; 87070; 87075; 87077; 87186; 87205; 97605; 99214; G0463

== ENCOUNTER → 2024-12-06 | Outpatient (CLI) | payer MEDICARE, SELFPAY ==
[2024-12-06 15:34] LABS: Absolute Neutrophil Count 2.4 X10^3/uL (2.0-7.7); Basophil# 0.05 X10^3/uL; Eosinophil# 0.16 X10^3/uL; Hemoglobin 14.8 g/dL (13.0-16.5); Lymphocyte % 36.2 % (19-41); Mean Corp Hgb Conc 33.6 g/dL (32-36); Mean Corpuscular Hgb 31.4 pg (27.0-32.0); Mean Corpuscular Volume 93.2 fL (80-94); Mean Platelet Vol. 12.8 fl (6.2-12.0); Monocyte# 0.72 X10^3/uL; Monocyte% 13.7 % (0-10); NRBC Flagged by Analyzer 0 % (0-5); Neutrophil # 2.41 X10^3/uL (2.7-7.7); Neutrophil % 45.9 % (47-70); Platelet Count 161 K/mm3 (150-450); RBC Distribution Width CV 15.9 % (11.6-14.6); RBC Distribution Width SD 54.7 fl (35.1-43.9); Red Blood Count 4.72 M/mm3 (4.6-6.2); White Blood Count 5.3 K/mm3 (4.4-11.0)
[2024-12-06 17:43] LABS: ALB/GLOB Ratio 1.2 RATIO (0.9-2.4); AST(SGOT) 23 U/L (<=37); Alanine Aminotransfer ALT/SGPT 8 U/L (<=46); Albumin, Serum 4.2 g/dL (3.5-5.0); Alkaline Phosphatase 73 U/L (40-129); Anion Gap 17 (5-15); BUN 4 mg/dL (4-19); BUN/Creat Ratio 4.9 RATIO (10-20); Calcium,Total 10.3 mg/dL (7.6-11.0); Carbon Dioxide 20.3 mmol/L (21.0-32.0); Chloride 102 mmol/L (98-108); Cholesterol 177 mg/dL (<=200); Creatinine, Serum 0.86 mg/dL (0.70-1.20); EST Glomerular Filtration Rate 101 (>60); Globulin 3.5 g/dL (2.2-4.2); Glucose 120 mg/dL (70-99); High Density Lipoprotein 78 mg/dL; Low Density Lipoprotein Calc. 78 mg/dL; Potassium 3.8 mmol/L (3.3-5.1); Protein, Total 7.6 g/dL (5.9-8.4); Sodium Level 138 mmol/L (133-145); Total Bilirubin 0.27 mg/dL (0.00-1.30); Triglycerides 110 mg/dL; Very Low Density Lipoprotein 22 mg/dL (5-40); cholesterol:hdl ratio screen 2.28
[2024-12-06 17:47] LABS: PSA,Total - Annual Screen 0.83 ng/mL (0.02-4.00)
[2024-12-10 23:07] LABS: Vitamin B1, Thiamine 214.5 nmol/L (66.5-200.0)
== END | disposition home or self-care (01) ==
LOC: BFHLAB 13:29
PROVIDERS: PCP Family Medicine; Visit Provider Family Medicine
DX: Z00.00 Encounter for general adult medical examination without abnormal findings (principal); F10.20 Alcohol dependence, uncomplicated; Z12.5 Encounter for screening for malignant neoplasm of prostate; E51.9 Thiamine deficiency, unspecified
CPT/HCPCS: 36415; 80053; 80061; 82746; 84153; 84425; 85025; G0103

== ENCOUNTER 2024-12-09 09:00 | Outpatient (RCR) | payer MEDICARE, SELFPAY ==
[2024-11-17 00:05] VITALS: BP 147/79; PULSE 101; RESP 18; TEMP 36.1; BMI 32.5
[2024-11-25 09:14] VITALS: BP 174/90; PULSE 104; RESP 18; TEMP 36.6; BMI 32.5
[2024-12-09 09:15] VITALS: BP 160/79; PULSE 87; RESP 18; TEMP 36.4; BMI 32.5
== END 2024-12-16 23:59 | disposition home or self-care (01) ==
LOC: WC 09:00
PROVIDERS: PCP Family Medicine; Referring Provider Podiatrist Foot & Ankle Surgery; Visit Provider Surgery Plastic and Reconstructive Surgery
DX: T81.89XA Other complications of procedures, not elsewhere classified, initial encounter (principal); L97.312 Non-pressure chronic ulcer of right ankle with fat layer exposed; F17.200 Nicotine dependence, unspecified, uncomplicated; Z71.6 Tobacco abuse counseling
CPT/HCPCS: 11042; 11043; 93923

== ENCOUNTER 2025-01-06 09:00 | Outpatient (RCR) | payer MEDICARE, SELFPAY ==
[2024-12-23 09:04] VITALS: BP 149/87; PULSE 96; RESP 18; TEMP 36.6
--- NOTE | 2024-12-23 09:51 | PN.PCM_ITS ---
History of Present Illness Date of Service: 12/23/24 Chief Complaint: Right lateral ankle wound after foot and ankle surgery History of Wound: Amador Alarcon is a delightful 59-year-old male with past medical history of right ankle fracture in June 2024 (4 months ago) who presents with a nonhealing wound on the lateral aspect of the incision from the foot and ankle surgeon. Patient reports that he had a mechanical fall in June which was treated with open reduction internal fixation at [facility] by foot and ankle surgeon Dr. Dell Mccann, who referred the patient to the wound care center for the nonhealing wound. Patient is reportedly full weightbearing, but is using a walker for assistance. He continues to smoke (discussed smoking cessation at our visit today). He denies any fevers or chills. Patient does not have a personal or family history of bleeding or clotting problems. He reports that he is otherwise healthy. Subjective Subjective 04 Nov 2024: Doing well overall today 1 week status post removal of fibular hardware with Dr. Mccann (removed 28 Oct 2024). Dr. Mccann also placed a skin substitute over the exposed area of fibula at the base of the wound. Patient has been taking doxycycline 100 mg p.o. twice daily since the week before last for positive cultures of the surface of the hardware taken in clinic. No cultures were taken at the time of hardware explantation (I spoke with Dr. Mccann after the surgery). Mr. Alarcon is currently doing Dakin's wet-to-dry twice daily for wound care over the wound over the skin substitute. He has an infectious disease referral to see Dr. Newby. 14 Nov 2024: Feeling well overall. Tolerating dressing changes with wound VAC. Finish course of antibiotics. No fevers chills or drainage. 25 November 2024: Doing well overall. Tolerating VAC changes. Patient continues to smoke. 09 December 2024: The patient is a 59-year-old male presenting for the management of a right lateral ankle wound. The wound has been improving significantly with the use of a wound vacuum-assisted closure (VAC) device, although it is not yet fully healed. The wound measures approximately 7 x 2 cm and is 0.6 cm deep and shows no exposed bone or critical structures, with a beefy red base indicating healthy granulation tissue. The patient has a history of smoking, which he has been attempting to reduce significantly. He reports occasional lapses in smoking cessation, which have caused irritability and mood changes. He has been advised to minimize smoking to aid in wound healing. Attestation: Documentation on this patient encounter was supported using ambient scribe technology/ voice AI technology. The patient consented to recording for the purpose of documenting the encounter. Provider reviewed content of the generated note prior to signature. CURRENT ENCOUNTER, 23 December 2024: The patient is a 59-year-old male presenting with a right lateral ankle wound. The wound is described as measuring 6 x 0.5 cm with fibrinous exudate at the base, located in the subcutaneous layer. There are no exposed critical structures, and it is healing by secondary intention. The patient reports a significant reduction in smoking, particularly cigars, which has been challenging but is contributing positively to the wound healing process. He has been walking regularly, occasionally using an ice pack for comfort, and has taken a couple of pain pills from his medicine cabinet. ROS - Musculoskeletal: Reports walking regularly, occasionally using an ice pack for comfort - General: Denies major problems, reports significant reduction in smoking Attestation: Documentation on this patient encounter was supported using ambient scribe technology/ voice AI technology. The patient consented to recording for the purpose of documenting the encounter. Provider reviewed content of the generated note prior to signature. Objective Data Objective Data Vital Signs: Vital Signs Temp Pulse Resp BP 98 F 96 18 149/87 H 12/23/24 09:04 12/23/24 09:04 12/23/24 09:04 12/23/24 09:04 Charges/Coding Procedures Integumentary 111xxx-113xx: 13469 Lisa subq tissue 20 sq cm/< Physical Exam Narrative - Right lateral ankle: Wound measuring 6 x 0.5 cm with fibrinous exudate at the base, no exposed critical structures, healing by secondary intention Debridement Note Debridement Note Wound debrided: Right lateral ankle wound Laterality: Right Wound Grade/Stage: 3 Type of Debridement: Excisional debridement Anesthesia Used: 4% Lidocaine Solution Depth: in the subcutaneous layer Percentage of wound debrided: 100 Instrument Used: 7mm curette Tissue Removed: Necrotic fibrinous exudate Severity: Fat Layer Exposed Amount of bleeding with debridement: Moderate Bleeding Controlled with: Compression and gauze Patient tolerated procedure: Patient tolerated procedure well Post-Debridement Measurements and Additional Note: Post-Debridement Measurements/Treatment WC - Nurse 1 - General Ulcer Assessment Start: 12/23/24 09:04 Freq: Status: Active Protocol: KELIN Activity Type Activity Date Activity User E-sign Co-sign Detail Recorded Client Recorded Date Recorded By Document 12/23/24 09:04 NICOLÁS [id number] 12/23/24 09:12 DL 12/23/24 09:04 WC - Today's Visit Information Type of service Follow-up Visit (Physician/JOB TRAINING SUPERVISOR ) Arrival Mode Ambulatory Transfer Assistance None Patient Identification Verified (Name & Yes ) Patient Requires Transmission-Based No Precautions Vital Signs Temperature (97.8 F-99.1 F) 98 F Temperature Source Temporal Pulse Rate (60-100) 96 Pulse Location Monitor Respiratory Rate (12-18) 18 Respiratory rate source Observation Blood Pressure (90/60-120/80) 149/87 H Blood Pressure Mean (mm Hg) 107 History Since Last Visit- (Skip if this is Patient's initial visit) Have you changed medications since your No last visit? Any new allergies or adverse reactions No Had a fall/change in ADL's that may No increase risk of falls Signs or symptoms of abuse and/or No neglect since last visit Have you been in the hospital since your No last visit? Has dressing in place as prescribed Yes Has compression in place as prescribed Yes Has offloadiing in place as prescribed N/A Experienced any changes in pain level or No management Right Footwear Surgical Shoe with pressure relief insole Pain Scale: 0-10 Numeric Is Patient Pain Free? Yes - Nurse 1 - General Ulcer Measurement Start: 12/23/24 09:04 Freq: Status: Active Protocol: Activity Type Activity Date Activity User E-sign Co-sign Detail Recorded Client Recorded Date Recorded By Document 12/23/24 09:04 NICOLÁS [id number] 12/23/24 09:12 DL 12/23/24 09:04 Wound Center Nurse 1 #1 RLat Ankle -Current Size (cm) - Length 5 -Current Size (cm) - Width 0.7 -Current Size (cm) - Depth 0.3 -Total Square Cm 3.5 -Photo Taken Yes -Exudate Amt Medium -Exudate Type Serosanguineous -Wound Margin Distinct, Outline Attached -Granulation Amt Small (1-33%) -Granulation Quality [place] -Necrosis Amt Small (1-33%) -Necrotic Tissue Type Adherent Slough -Structure Exposed N/A -Texture (Nubia-wound Skin Appearance) Scarring -Moisture (Nubia-wound Skin Appearance) Maceration -Color (Nubia-wound Skin Appearance) No Abnormality -Temperature (Nubia-wound Skin No Abnormality Appearance) (Pt Warm) -Tenderness on Palpation (Nubia-wound No Skin Appearance) -Ulcer Cleansing Soap and Water -Foul Odor after Cleansing No -Anesthetic Used 5% Lidocaine Gel Right Calf (cm) 33.5 Right Ankle (cm) 24.5 WC - Nurse 2 - General Ulcer CM Notes Start: 12/23/24 09:04 Freq: Status: Active Protocol: Activity Type Activity Date Activity User E-sign Co-sign Detail Recorded Client Recorded Date Recorded By Document 12/23/24 09:29 DS [id number] 12/23/24 09:30 DS 12/23/24 09:29 Wound Center Nurse 2 #1 RLat Ankle -Time 09:29 -Correct Patient Yes -Correct Side, Site, Position Yes -Correct Procedure Yes -Procedure Performed Yes -Type of Procedure Debridement -Clinical Debridement Subcutaneous -Tissue Removed Subcutaneous -Post Debridement (cm) - Length 6.0 -Post Debridement (cm) - Width 0.5 -Post Debridement (cm) - Depth 0.5 -Total Square (Post) (cm) 3.00 -Area of Debridement (cm) - Length 6.0 -Area of Debridement (cm) - Width 0.5 -Total Square (Area) (cm) 3.00 -Tunneling No -Undermining/Tunneling No -Circular Undermining No -Wound/Ulcer Outcome Not Healed -Ulcer Cleansing Rinsed/ Irrigated with Saline -Foul Odor after Cleansing No -Bioengineered Tissue No -Bleeding Controlled with Pressure -Treatment Response Procedure Tolerated Well -Debridement - Subq, 1st 20sq cm Yes Pain Scale: 0-10 Numeric Is Patient Pain Free? Yes WC - Nurse 3 - General Ulcer D/C NN Start: 12/23/24 09:04 Freq: Status: Active Protocol: Activity Type Activity Date Activity User E-sign Co-sign Detail Recorded Client Recorded Date Recorded By Document 12/23/24 09:48 DL [id number] 12/23/24 09:50 DL 12/23/24 09:48 Wound Care Center Nurse 3 #1 RLat Ankle -Ulcer Cleansing Soap and Water -Setting (mmHg) 125 -Negative Pressure is Continuous -Regranex (If Applicable) Continue -Other Covering ABd for padding RLE -Tubular Bandage Single Layer -Size of Tubigrip Used Size F -Size F ($) 1 Treatment Response Procedure Tolerated Well Pain Scale: 0-10 Numeric Is Patient Pain Free? Yes WC - Visit Discharge Discharge Condition Stable Ambulatory Status Ambulatory Transportation Private [facility] Facility Type Home Health Orders Sent Yes Assessment/Plan Assessment/Plan (1) Delayed surgical wound healing: CODE(S): T81.89XA - Other complications of procedures, not elsewhere classified, initial encounter PLAN: Assessment and Plan The patient is a 59-year-old male with a history of smoking presenting with a right lateral ankle wound. The wound is healing well by secondary intention, with no exposed critical structures and a fibrinous exudate at the base. The patient's reduction in smoking is positively impacting the healing process, and he is managing discomfort with occasional use of ice packs and pain medication. 1. Right Lateral Ankle Wound The patient will continue with gentle debridement and irrigation as needed to promote healing by secondary intention. He is advised to maintain reduced smoking habits to aid in the healing process. Follow-up is scheduled in two weeks to monitor progress and make any necessary adjustments to the treatment plan. (2) Smoking addiction: CODE(S): F17.200 - Nicotine dependence, unspecified, uncomplicated PLAN: Plan - Continue with gentle wound care and irrigation as needed. - Maintain reduced smoking habits to support healing. - Use ice packs for comfort as needed. - Follow up in two weeks for wound assessment.
--- NOTE | 2024-12-24 08:52 | WC ---
PHOTO 12/23/24 ANABELLAE
[2025-01-06 09:04] VITALS: BP 156/84; PULSE 80; RESP 18; TEMP 36.1
--- NOTE | 2025-01-07 09:30 | WC ---
PHOTO 01/06/25 CELINA
--- NOTE | 2025-01-07 09:31 | PN.PCM_ITS ---
History of Present Illness Date of Service: 01/06/25 Chief Complaint: Right lateral ankle wound after foot and ankle surgery History of Wound: Amador Alarcon is a delightful 59-year-old male with past medical history of right ankle fracture in June 2024 (4 months ago) who presents with a nonhealing wound on the lateral aspect of the incision from the foot and ankle surgeon. Patient reports that he had a mechanical fall in June which was treated with open reduction internal fixation at [facility] by foot and ankle surgeon Dr. Dell Mccann, who referred the patient to the wound care center for the nonhealing wound. Patient is reportedly full weightbearing, but is using a walker for assistance. He continues to smoke (discussed smoking cessation at our visit today). He denies any fevers or chills. Patient does not have a personal or family history of bleeding or clotting problems. He reports that he is otherwise healthy. Subjective Subjective 04 Nov 2024: Doing well overall today 1 week status post removal of fibular hardware with Dr. Mccann (removed 28 Oct 2024). Dr. Mccann also placed a skin substitute over the exposed area of fibula at the base of the wound. Patient has been taking doxycycline 100 mg p.o. twice daily since the week before last for positive cultures of the surface of the hardware taken in clinic. No cultures were taken at the time of hardware explantation (I spoke with Dr. Mccann after the surgery). Mr. Alarcon is currently doing Dakin's wet-to-dry twice daily for wound care over the wound over the skin substitute. He has an infectious disease referral to see Dr. Newby. 14 Nov 2024: Feeling well overall. Tolerating dressing changes with wound VAC. Finish course of antibiotics. No fevers chills or drainage. 25 November 2024: Doing well overall. Tolerating VAC changes. Patient continues to smoke. 09 December 2024: The patient is a 59-year-old male presenting for the management of a right lateral ankle wound. The wound has been improving significantly with the use of a wound vacuum-assisted closure (VAC) device, although it is not yet fully healed. The wound measures approximately 7 x 2 cm and is 0.6 cm deep and shows no exposed bone or critical structures, with a beefy red base indicating healthy granulation tissue. The patient has a history of smoking, which he has been attempting to reduce significantly. He reports occasional lapses in smoking cessation, which have caused irritability and mood changes. He has been advised to minimize smoking to aid in wound healing. Attestation: Documentation on this patient encounter was supported using ambient scribe technology/ voice AI technology. The patient consented to recording for the purpose of documenting the encounter. Provider reviewed content of the generated note prior to signature. 23 December 2024: The patient is a 59-year-old male presenting with a right lateral ankle wound. The wound is described as measuring 6 x 0.5 cm with fibrinous exudate at the base, located in the subcutaneous layer. There are no exposed critical structures, and it is healing by secondary intention. The patient reports a significant reduction in smoking, particularly cigars, which has been challenging but is contributing positively to the wound healing process. He has been walking regularly, occasionally using an ice pack for comfort, and has taken a couple of pain pills from his medicine cabinet. ROS - Musculoskeletal: Reports walking regularly, occasionally using an ice pack for comfort - General: Denies major problems, reports significant reduction in smoking Attestation: Documentation on this patient encounter was supported using ambient scribe technology/ voice AI technology. The patient consented to recording for the purpose of documenting the encounter. Provider reviewed content of the generated note prior to signature. CURRENT ENCOUNTER, 06 JANUARY 2025: The patient is a 59-year-old male presenting for wound management and evaluation of healing progress. The wound has been healing with new skin formation observed, and there is no longer any exposed bone, tendon, or fascia. The patient has been advised to continue the wound VAC for another two weeks, with the expectation of complete healing thereafter. The patient has a history of smoking but reports a reduction in smoking frequency. He has completed a course of doxycycline antibiotics a couple of months ago, which was prescribed for the wound. No fevers chills or any systemic signs of infection. Reports no drainage or pain in the leg. Attestation: Documentation on this patient encounter was supported using ambient scribe technology/ voice AI technology. The patient consented to recording for the purpose of documenting the encounter. Provider reviewed content of the generated note prior to signature. Objective Data Objective Data Vital Signs: Vital Signs Temp Pulse Resp BP O2 Del Method 97.0 F L 80 18 156/84 H Room Air 01/06/25 09:04 01/06/25 09:04 01/06/25 09:04 01/06/25 09:04 01/06/25 09:04 Oxygen Delivery Method Room Air Charges/Coding Procedures Integumentary 111xxx-113xx: [id number] Lisa subq tissue 20 sq cm/< Physical Exam Narrative - Integumentary: Wound shows new skin formation, no exposed bone, tendon, or fascia - Wound debridement: Removal of biofilm and fibrous exudate No drainage or signs of infection Near complete reepithelialization with small 6 x 0.5 cm area of open wound that is approximately 0.4 cm deep with granulation tissue at the base Debridement Note Debridement Note Wound debrided: Right lateral ankle wound Laterality: Right Wound Grade/Stage: Stage III Type of Debridement: Excisional debridement Anesthesia Used: 4% Lidocaine Solution Depth: in the subcutaneous layer Percentage of wound debrided: 100 Instrument Used: 7mm curette Tissue Removed: Fibrinous exudate and biofilm Severity: Fat Layer Exposed Amount of bleeding with debridement: Mild Bleeding Controlled with: Compression and gauze Patient tolerated procedure: Patient tolerated procedure well Post-Debridement Measurements and Additional Note: Post-Debridement Measurements/Treatment - Nurse 1 - General Ulcer Assessment Start: 12/23/24 09:04 Freq: Status: Active Protocol: GOGO.SONIA Activity Type Activity Date Activity User E-sign Co-sign Detail Recorded Client Recorded Date Recorded By Document 12/23/24 09:04 DL [id number] 12/23/24 09:12 DL Document 01/06/25 09:04 KW [id number] 01/06/25 09:15 KW 12/23/24 01/06/25 09:04 09:04 - Today's Visit Information Type of service Follow-up Visit Follow-up Visit (Physician/PRODUCE WEIGHER (Physician/PRODUCE WEIGHER ) ) Arrival Mode Ambulatory Ambulatory Transfer Assistance None Patient Identification Verified (Name & Yes Yes ) Patient Requires Transmission-Based No Precautions Vital Signs Temperature (97.8 F-99.1 F) 98 F 97.0 F L Temperature Source Temporal Temporal Pulse Rate (60-100) 96 80 Pulse Location Monitor Monitor Respiratory Rate (12-18) 18 18 Respiratory rate source Observation Observation Oxygen Delivery Method Room Air Blood Pressure (90/60-120/80) 149/87 H 156/84 H Blood Pressure Mean (mm Hg) 107 108 Source Monitor Position Sitting Blood Pressure Location Left Arm History Since Last Visit- (Skip if this is Patient's initial visit) Have you changed medications since your No No last visit? Any new allergies or adverse reactions No No Had a fall/change in ADL's that may No No increase risk of falls Signs or symptoms of abuse and/or No No neglect since last visit Have you been in the hospital since your No No last visit? Has dressing in place as prescribed Yes Yes Has compression in place as prescribed Yes Yes Has offloadiing in place as prescribed N/A Yes Experienced any changes in pain level or No No management Left Footwear Regular Shoe Right Footwear Surgical Shoe Surgical Shoe with pressure with pressure relief insole relief insole Pain Scale: 0-10 Numeric Is Patient Pain Free? Yes Yes WC - Nurse 1 - General Ulcer Measurement Start: 12/23/24 09:04 Freq: Status: Active Protocol: Activity Type Activity Date Activity User E-sign Co-sign Detail Recorded Client Recorded Date Recorded By Document 12/23/24 09:04 DL [id number] 12/23/24 09:12 DL Document 01/06/25 09:04 KW [id number] 01/06/25 09:15 KW 12/23/24 01/06/25 09:04 09:04 Wound Center Nurse 1 #1 RLat Ankle -Current Size (cm) - Length 5 5 -Current Size (cm) - Width 0.7 0.5 -Current Size (cm) - Depth 0.3 0.3 -Total Square Cm 3.5 2.5 -Date of Last Picture (Recall this 01/06/25 field) -Photo Taken Yes -Exudate Amt Medium Small -Exudate Type Serosanguineous Serosanguineous -Wound Margin Distinct, Distinct, Outline Outline Attached Attached -Granulation Amt Small (1-33%) Large (67-100%) -Granulation Quality [place] Pale -Necrosis Amt Small (1-33%) -Necrotic Tissue Type Adherent Slough -Structure Exposed N/A -Texture (Nubia-wound Skin Appearance) Scarring Assessed -Moisture (Nubia-wound Skin Appearance) Maceration Assessed, Maceration -Color (Nubia-wound Skin Appearance) No Abnormality Assessed -Temperature (Nubia-wound Skin No Abnormality No Abnormality Appearance) (Pt Warm) (Pt Warm) -Tenderness on Palpation (Nubia-wound No No Skin Appearance) -Ulcer Cleansing Soap and Water Soap and Water -Foul Odor after Cleansing No No -Anesthetic Used 5% Lidocaine 5% Lidocaine Gel Gel Right Calf (cm) 33.5 Right Ankle (cm) 24.5 WC - Nurse 2 - General Ulcer CM Notes Start: 12/23/24 09:04 Freq: Status: Active Protocol: Activity Type Activity Date Activity User E-sign Co-sign Detail Recorded Client Recorded Date Recorded By Document 12/23/24 09:29 DS [id number] 12/23/24 09:30 DS Document 01/06/25 09:22 DS [id number] 01/06/25 09:22 DS 12/23/24 01/06/25 09:29 09:22 Wound Center Nurse 2 #1 RLat Ankle -Time 09:29 09:22 -Correct Patient Yes Yes -Correct Side, Site, Position Yes Yes -Correct Procedure Yes Yes -Procedure Performed Yes Yes -Type of Procedure Debridement Debridement -Clinical Debridement Subcutaneous Subcutaneous -Tissue Removed Subcutaneous Subcutaneous -Post Debridement (cm) - Length 6.0 4.0 -Post Debridement (cm) - Width 0.5 0.5 -Post Debridement (cm) - Depth 0.5 0.1 -Total Square (Post) (cm) 3.00 2.00 -Area of Debridement (cm) - Length 6.0 4.0 -Area of Debridement (cm) - Width 0.5 0.5 -Total Square (Area) (cm) 3.00 2.00 -Tunneling No No -Undermining/Tunneling No No -Circular Undermining No No -Wound/Ulcer Outcome Not Healed Not Healed -Ulcer Cleansing Rinsed/ Irrigated with Saline -Foul Odor after Cleansing No No -Bioengineered Tissue No No -Bleeding Controlled with Pressure Pressure -Treatment Response Procedure Procedure Tolerated Well Tolerated Well -Debridement - Subq, 1st 20sq cm Yes Yes Pain Scale: 0-10 Numeric Is Patient Pain Free? Yes Yes WC - Nurse 3 - General Ulcer D/C NN Start: 12/23/24 09:04 Freq: Status: Active Protocol: Activity Type Activity Date Activity User E-sign Co-sign Detail Recorded Client Recorded Date Recorded By Document 12/23/24 09:48 DL [id number] 12/23/24 09:50 DL Document 01/06/25 09:52 DL [id number] 01/06/25 09:53 DL 12/23/24 01/06/25 09:48 09:52 Wound Care Center Nurse 3 #1 RLat Ankle -Ulcer Cleansing Soap and Water Rinsed/ Irrigated with Saline -Foul Odor after Cleansing No -Setting (mmHg) 125 125 -Negative Pressure is Continuous Continuous -Regranex (If Applicable) Continue Continue -Other Covering ABd for padding RLE -Tubular Bandage Single Layer Single Layer -Size of Tubigrip Used Size F Size F -Size F ($) 1 1 Treatment Response Procedure Procedure Tolerated Well Tolerated Well Pain Scale: 0-10 Numeric Is Patient Pain Free? Yes Yes WC - Visit Discharge Discharge Condition Stable Stable Ambulatory Status Ambulatory Ambulatory Transportation Private Auto Private Auto Facility Type Home Health Home Health Orders Sent Yes Yes Assessment/Plan Assessment/Plan (1) Smoking addiction: CODE(S): F17.200 - Nicotine dependence, unspecified, uncomplicated (2) Delayed surgical wound healing: CODE(S): T81.89XA - Other complications of procedures, not elsewhere classified, initial encounter (3) Encounter for screening for malignant neoplasm of colon: CODE(S): Z12.11 - Encounter for screening for malignant neoplasm of colon PLAN: Plan Patient doing well overall No signs of any infection. Patient progressing well with wound VAC therapy Plan to use wound VAC for another 2 weeks and then likely he will either be healed or we will transition to a hydrogel daily application.
== END 2025-01-16 23:59 | disposition home or self-care (01) ==
LOC: WC 09:00
PROVIDERS: PCP Family Medicine; Referring Provider Podiatrist Foot & Ankle Surgery; Visit Provider Surgery Plastic and Reconstructive Surgery
DX: T81.89XA Other complications of procedures, not elsewhere classified, initial encounter (principal); F17.200 Nicotine dependence, unspecified, uncomplicated; Z12.11 Encounter for screening for malignant neoplasm of colon
CPT/HCPCS: 11042

== ENCOUNTER 2025-02-10 09:15 | Outpatient (RCR) | payer MEDICARE, SELFPAY ==
[2025-01-27 09:17] VITALS: BP 144/82; PULSE 86; RESP 18; TEMP 36.6
--- NOTE | 2025-01-27 10:02 | PN.PCM_ITS ---
History of Present Illness Date of Service: 01/27/25 Chief Complaint: Right lateral ankle wound after foot and ankle surgery History of Wound: Amador Alarcon is a delightful 59-year-old male with past medical history of right ankle fracture in June 2024 (4 months ago) who presents with a nonhealing wound on the lateral aspect of the incision from the foot and ankle surgeon. Patient reports that he had a mechanical fall in June which was treated with open reduction internal fixation at [facility] by foot and ankle surgeon Dr. Dell Mccann, who referred the patient to the wound care center for the nonhealing wound. Patient is reportedly full weightbearing, but is using a walker for assistance. He continues to smoke (discussed smoking cessation at our visit today). He denies any fevers or chills. Patient does not have a personal or family history of bleeding or clotting problems. He reports that he is otherwise healthy. Subjective Subjective 04 Nov 2024: Doing well overall today 1 week status post removal of fibular hardware with Dr. Mccann (removed 28 Oct 2024). Dr. Mccann also placed a skin substitute over the exposed area of fibula at the base of the wound. Patient has been taking doxycycline 100 mg p.o. twice daily since the week before last for positive cultures of the surface of the hardware taken in clinic. No cultures were taken at the time of hardware explantation (I spoke with Dr. Mccann after the surgery). Mr. Alarcon is currently doing Dakin's wet-to-dry twice daily for wound care over the wound over the skin substitute. He has an infectious disease referral to see Dr. Newby. 14 Nov 2024: Feeling well overall. Tolerating dressing changes with wound VAC. Finish course of antibiotics. No fevers chills or drainage. 25 November 2024: Doing well overall. Tolerating VAC changes. Patient continues to smoke. 09 December 2024: The patient is a 59-year-old male presenting for the management of a right lateral ankle wound. The wound has been improving significantly with the use of a wound vacuum-assisted closure (VAC) device, although it is not yet fully healed. The wound measures approximately 7 x 2 cm and is 0.6 cm deep and shows no exposed bone or critical structures, with a beefy red base indicating healthy granulation tissue. The patient has a history of smoking, which he has been attempting to reduce significantly. He reports occasional lapses in smoking cessation, which have caused irritability and mood changes. He has been advised to minimize smoking to aid in wound healing. Attestation: Documentation on this patient encounter was supported using ambient scribe technology/ voice AI technology. The patient consented to recording for the purpose of documenting the encounter. Provider reviewed content of the generated note prior to signature. 23 December 2024: The patient is a 59-year-old male presenting with a right lateral ankle wound. The wound is described as measuring 6 x 0.5 cm with fibrinous exudate at the base, located in the subcutaneous layer. There are no exposed critical structures, and it is healing by secondary intention. The patient reports a significant reduction in smoking, particularly cigars, which has been challenging but is contributing positively to the wound healing process. He has been walking regularly, occasionally using an ice pack for comfort, and has taken a couple of pain pills from his medicine cabinet. ROS - Musculoskeletal: Reports walking regularly, occasionally using an ice pack for comfort - General: Denies major problems, reports significant reduction in smoking Attestation: Documentation on this patient encounter was supported using ambient scribe technology/ voice AI technology. The patient consented to recording for the purpose of documenting the encounter. Provider reviewed content of the generated note prior to signature. 06 JANUARY 2025: The patient is a 59-year-old male presenting for wound management and evaluation of healing progress. The wound has been healing with new skin formation observed, and there is no longer any exposed bone, tendon, or fascia. The patient has been advised to continue the wound VAC for another two weeks, with the expectation of complete healing thereafter. The patient has a history of smoking but reports a reduction in smoking frequency. He has completed a course of doxycycline antibiotics a couple of months ago, which was prescribed for the wound. No fevers chills or any systemic signs of infection. Reports no drainage or pain in the leg. Attestation: Documentation on this patient encounter was supported using ambient scribe technology/ voice AI technology. The patient consented to recording for the purpose of documenting the encounter. Provider reviewed content of the generated note prior to signature. CURRENT ENCOUNTER, 27 January 2025: Doing well. No fevers, chills, or drainage. Has discontinued VAC. Objective Data Objective Data Vital Signs: Vital Signs Temp Pulse Resp BP O2 Del Method 97.9 F 86 18 144/82 H Room Air 0811/25 09:17 01/27/25 09:17 01/27/25 09:17 01/27/25 09:17 01/27/25 09:17 Oxygen Delivery Method Room Air Charges/Coding Visit Charges Office Visits / Consults: 33126 OV L3 Est 20min Physical Exam Narrative - Integumentary: No drainage or signs of infection complete reepithelialization Skin is very fragile/fresh Debridement Note Debridement Note No debridement was completed: No debridement was completed today Post-Debridement Measurements and Additional Note: Post-Debridement Measurements/Treatment WC - Nurse 1 - General Ulcer Assessment Start: 01/27/25 09:17 Freq: Status: Active Protocol: KELIN Activity Type Activity Date Activity User E-sign Co-sign Detail Recorded Client Recorded Date Recorded By Document 01/27/25 09:17 KW [id number] 01/27/25 09:23 KW 01/27/25 09:17 WC - Today's Visit Information Type of service Follow-up Visit (Physician/SWATCH FOLDER ) Arrival Mode Ambulatory Patient Identification Verified (Name & Yes ) Vital Signs Temperature (97.8 F-99.1 F) 97.9 F Temperature Source Temporal Pulse Rate (60-100) 86 Pulse Location Monitor Respiratory Rate (12-18) 18 Respiratory rate source Observation Oxygen Delivery Method Room Air Blood Pressure (90/60-120/80) 144/82 H Blood Pressure Mean (mm Hg) 102 Source Monitor Position Sitting Blood Pressure Location Right Arm History Since Last Visit- (Skip if this is Patient's initial visit) Have you changed medications since your No last visit? Any new allergies or adverse reactions No Had a fall/change in ADL's that may No increase risk of falls Signs or symptoms of abuse and/or No neglect since last visit Have you been in the hospital since your No last visit? Has dressing in place as prescribed Yes Has compression in place as prescribed N/A Has offloadiing in place as prescribed Yes Experienced any changes in pain level or No management Left Footwear Regular Shoe Right Footwear Surgical Shoe with pressure relief insole Pain Scale: 0-10 Numeric Is Patient Pain Free? Yes GOGO - Nurse 1 - General Ulcer Measurement Start: 01/27/25 09:17 Freq: Status: Active Protocol: Activity Type Activity Date Activity User E-sign Co-sign Detail Recorded Client Recorded Date Recorded By Document 01/27/25 09:17 KW [id number] 01/27/25 09:23 01/27/25 09:17 Wound Center Nurse 1 #1 RLat Ankle -Current Size (cm) - Length 5 -Current Size (cm) - Width 0.1 -Current Size (cm) - Depth 0.1 -Total Square Cm 0.5 -Date of Last Picture (Recall this 01/27/25 field) -Epithelialization Large 67-100% -Exudate Amt Small -Exudate Type Serosanguineous -Wound Margin Distinct, Outline Attached -Granulation Amt Large (67-100%) -Granulation Quality [place] -Texture (Nubia-wound Skin Appearance) Assessed -Moisture (Nubia-wound Skin Appearance) Assessed -Color (Nubia-wound Skin Appearance) Assessed -Temperature (Nubia-wound Skin No Abnormality Appearance) (Pt Warm) -Tenderness on Palpation (Nubia-wound No Skin Appearance) -Ulcer Cleansing Rinsed/ Irrigated with Saline -Foul Odor after Cleansing No -Anesthetic Used 5% Lidocaine Gel WC - Nurse 2 - General Ulcer CM Notes Start: 01/27/25 09:17 Freq: Status: Active Protocol: Activity Type Activity Date Activity User E-sign Co-sign Detail Recorded Client Recorded Date Recorded By Document 01/27/25 09:40 RENE [id number] 01/27/25 09:41 01/27/25 09:40 Wound Center Nurse 2 -Correct Patient Yes -Correct Side, Site, Position No -Correct Procedure No -Procedure Performed No -Post Debridement (cm) - Length 0.1 -Post Debridement (cm) - Width 0.1 -Post Debridement (cm) - Depth 0.1 -Total Square (Post) (cm) 0.01 -Area of Debridement (cm) - Length 0.1 -Area of Debridement (cm) - Width 0.1 -Total Square (Area) (cm) 0.01 -Wound/Ulcer Outcome Not Healed Pain Scale: 0-10 Numeric Is Patient Pain Free? Yes GOGO - Nurse 3 - General Ulcer D/C NN Start: 01/27/25 09:17 Freq: Status: Active Protocol: Activity Type Activity Date Activity User E-sign Co-sign Detail Recorded Client Recorded Date Recorded By Document 01/27/25 09:41 RENE [id number] 01/27/25 09:41 01/27/25 09:41 Wound Care Center Nurse 3 #1 RLat Ankle -Primary Dressing Covered/Secured with Dry Gauze, Secured with Tape Pain Scale: 0-10 Numeric Is Patient Pain Free? Yes WC - Visit Discharge Discharge Condition Stable Ambulatory Status Ambulatory Transportation Private Auto Medication Reconcilliation completed & Yes provided to patient/care provider Clinical Summary of Care Provided Yes Assessment/Plan Assessment/Plan (1) Smoking addiction: CODE(S): F17.200 - Nicotine dependence, unspecified, uncomplicated (2) Delayed surgical wound healing: CODE(S): T81.89XA - Other complications of procedures, not elsewhere classified, initial encounter PLAN: Plan Aquaphor to the right lateral ankle fresh/healed skin once daily with protective gauze. F/u in 2 weeks to check the fresh skin.
--- NOTE | 2025-01-28 09:18 | WC ---
PHOTO-RIGHT LATERAL ANKLE 01/27/25
[2025-02-10 09:22] VITALS: BP 151/80; PULSE 91; RESP 14; TEMP 36.8
--- NOTE | 2025-02-10 09:37 | PCM.WC.PN ---
History of Present Illness Date of Service: 02/10/25 Chief Complaint: Right lateral ankle wound after foot and ankle surgery History of Wound: Amador Alarcon is a delightful 59-year-old male with past medical history of right ankle fracture in June 2024 (4 months ago) who presents with a nonhealing wound on the lateral aspect of the incision from the foot and ankle surgeon. Patient reports that he had a mechanical fall in June which was treated with open reduction internal fixation at [facility] by foot and ankle surgeon Dr. Dell Mccann, who referred the patient to the wound care center for the nonhealing wound. Patient is reportedly full weightbearing, but is using a walker for assistance. He continues to smoke (discussed smoking cessation at our visit today). He denies any fevers or chills. Patient does not have a personal or family history of bleeding or clotting problems. He reports that he is otherwise healthy. Subjective Subjective 04 Nov 2024: Doing well overall today 1 week status post removal of fibular hardware with Dr. Mccann (removed 28 Oct 2024). Dr. Mccann also placed a skin substitute over the exposed area of fibula at the base of the wound. Patient has been taking doxycycline 100 mg p.o. twice daily since the week before last for positive cultures of the surface of the hardware taken in clinic. No cultures were taken at the time of hardware explantation (I spoke with Dr. Mccann after the surgery). Mr. Alarcon is currently doing Dakin's wet-to-dry twice daily for wound care over the wound over the skin substitute. He has an infectious disease referral to see Dr. Newby. 14 Nov 2024: Feeling well overall. Tolerating dressing changes with wound VAC. Finish course of antibiotics. No fevers chills or drainage. 25 November 2024: Doing well overall. Tolerating VAC changes. Patient continues to smoke. 09 December 2024: The patient is a 59-year-old male presenting for the management of a right lateral ankle wound. The wound has been improving significantly with the use of a wound vacuum-assisted closure (VAC) device, although it is not yet fully healed. The wound measures approximately 7 x 2 cm and is 0.6 cm deep and shows no exposed bone or critical structures, with a beefy red base indicating healthy granulation tissue. The patient has a history of smoking, which he has been attempting to reduce significantly. He reports occasional lapses in smoking cessation, which have caused irritability and mood changes. He has been advised to minimize smoking to aid in wound healing. Attestation: Documentation on this patient encounter was supported using ambient scribe technology/ voice AI technology. The patient consented to recording for the purpose of documenting the encounter. Provider reviewed content of the generated note prior to signature. 23 December 2024: The patient is a 59-year-old male presenting with a right lateral ankle wound. The wound is described as measuring 6 x 0.5 cm with fibrinous exudate at the base, located in the subcutaneous layer. There are no exposed critical structures, and it is healing by secondary intention. The patient reports a significant reduction in smoking, particularly cigars, which has been challenging but is contributing positively to the wound healing process. He has been walking regularly, occasionally using an ice pack for comfort, and has taken a couple of pain pills from his medicine cabinet. ROS - Musculoskeletal: Reports walking regularly, occasionally using an ice pack for comfort - General: Denies major problems, reports significant reduction in smoking Attestation: Documentation on this patient encounter was supported using ambient scribe technology/ voice AI technology. The patient consented to recording for the purpose of documenting the encounter. Provider reviewed content of the generated note prior to signature. 06 JANUARY 2025: The patient is a 59-year-old male presenting for wound management and evaluation of healing progress. The wound has been healing with new skin formation observed, and there is no longer any exposed bone, tendon, or fascia. The patient has been advised to continue the wound VAC for another two weeks, with the expectation of complete healing thereafter. The patient has a history of smoking but reports a reduction in smoking frequency. He has completed a course of doxycycline antibiotics a couple of months ago, which was prescribed for the wound. No fevers chills or any systemic signs of infection. Reports no drainage or pain in the leg. Attestation: Documentation on this patient encounter was supported using ambient scribe technology/ voice AI technology. The patient consented to recording for the purpose of documenting the encounter. Provider reviewed content of the generated note prior to signature. 27 January 2025: Doing well. No fevers, chills, or drainage. Has discontinued VAC. CURRENT ENCOUNTER, 10 February 2025: Doing well overall. No drainage. Has been using lotion. Objective Data Objective Data Vital Signs: Vital Signs Temp Pulse Resp BP O2 Del Method 98.2 F 91 14 151/80 H Room Air 02/10/25 09:22 02/10/25 09:22 02/10/25 09:22 02/10/25 09:22 01/27/25 09:17 Oxygen Delivery Method Room Air Charges/Coding Visit Charges Office Visits / Consults: 28613 OV L3 Est 20min Physical Exam Narrative - Integumentary: No drainage or signs of infection complete reepithelialization Skin is healthy No drainage Debridement Note Debridement Note No debridement was completed: No debridement was completed today Assessment/Plan Assessment/Plan (1) Delayed surgical wound healing: CODE(S): T81.89XA - Other complications of procedures, not elsewhere classified, initial encounter PLAN: Healed. F/u with Dr. Mccann for any mechanical issues/concerns Wound healed. Discussed strict return precautions for drainage/signs of infection. Patient happy with the plan. F/u as needed
--- NOTE | 2025-02-11 10:33 | WC ---
PHOTO-RLE 02/10/25
== END 2025-02-10 09:34 | disposition home or self-care (01) ==
LOC: WC 09:15
PROVIDERS: PCP Family Medicine; Referring Provider Podiatrist Foot & Ankle Surgery; Visit Provider Surgery Plastic and Reconstructive Surgery
DX: T81.89XA Other complications of procedures, not elsewhere classified, initial encounter (principal); F17.200 Nicotine dependence, unspecified, uncomplicated
CPT/HCPCS: 99213; G0463